=== PATIENT | male | born 1985 | race Hispanic/Latino ===

== ENCOUNTER 2016-10-29 12:18 | Emergency (ER) | payer OTHER ==
[2016-10-29 12:29] VITALS: BMI 25.0
[2016-10-29 12:30] VITALS: TEMP 98.4
--- NOTE | 2016-10-29 13:01 | C.PDOC ---
History Of Present Illness The patient is a 31 yr old male presents to the ER with complaints of sudden onset of left and right sided chest pain yesterday while cooking at home. He describes the CP as a tightness. Some SOB was associated w/ his symptoms. Patient states he went to [facility], had a normal EKG and was told by the physician at [facility] to come to the ED for evaluation. Currently patient denies any chest pain, fever, palpitations, nausea, vomiting, abdominal pain, headache , weakness or numbness. Also denies any trauma or injury. PMD: None Time Seen by Provider: 10/29/16 12:49 Chief Complaint (Nursing): Chest Pain History Per: Patient History/Exam Limitations: no limitations Onset/Duration Of Symptoms: Sudden Onset (1 day ) Current Symptoms Are (Timing): Gone Past Medical History Reviewed: Historical Data, Nursing Documentation, Vital Signs Vital Signs: Last Vital Signs Temp 98.4 F 10/29/16 12:29 Pulse 92 H 10/29/16 14:56 Resp 18 10/29/16 14:56 BP 117/75 10/29/16 14:56 Pulse Ox 100 10/29/16 14:56 - Medical History PMH: No Chronic Diseases Family History: States: Hypertension - Social History Hx Tobacco Use: No Hx Alcohol Use: Yes (social) Hx Substance Use: No - Immunization History Hx Tetanus Toxoid Vaccination: No Hx Influenza Vaccination: No Hx Pneumococcal Vaccination: No Review Of Systems Except As Marked, All Systems Reviewed And Found Negative. Constitutional: Negative for: Fever Cardiovascular: Positive for: Chest Pain (None at the momemt ). Negative for: Palpitations Respiratory: Negative for: Shortness of Breath Gastrointestinal: Negative for: Nausea, Vomiting, Abdominal Pain Musculoskeletal: Positive for: Other ((+) Tingling sensation) Neurological: Negative for: Weakness, Numbness, Headache Physical Exam - Physical Exam Appears: Well, Non-toxic, No Acute Distress Skin: Warm, Dry, No Rash Head: Atraumatic, Normacephalic Eye(s): bilateral: Normal Inspection, EOMI Ear(s): Bilateral: Normal Nose: Normal Oral Mucosa: Moist Tongue: Normal Appearing Lips: Normal Appearing Throat: Normal, No Erythema, No Exudate, No Drooling Neck: Normal, Normal ROM, Supple Chest: Symmetrical, No Tenderness Cardiovascular: Rhythm Regular, No Murmur Respiratory: Normal Breath Sounds, No Rales, No Rhonchi, No Stridor, No Wheezing Gastrointestinal/Abdominal: Normal Exam, Soft, No Tenderness, No Guarding, No Rebound Extremity: Normal ROM, No Swelling Extremity: Bilateral: Atraumatic, Normal ROM Pulses: Left Radial: Normal, Right Radial: Normal Neurological/Psych: Oriented x3, Normal Speech, Normal Motor ED Course And Treatment - Laboratory Results Result Diagrams: 10/29/16 13:29 10/29/16 13:29 O2 Sat by Pulse Oximetry: 98 - Other Rad CXR X-Ray: Viewed By Me, Read By Radiologist Interpretation: HISTORY: chest pain. COMPARISON: None available. TECHNIQUE: Chest PA and lateral. FINDINGS: LUNGS: No focal consolidation. Please note that chest x-ray has limited sensitivity for the detection of pulmonary masses. PLEURA: No significant pleural effusion identified. No definite pneumothorax . CARDIOVASCULAR: The cardiomediastinal silhouette appears within normal limits of size. OSSEOUS STRUCTURES: No acute osseous abnormality identified. VISUALIZED UPPER ABDOMEN: Unremarkable. OTHER FINDINGS: None. IMPRESSION: No focal consolidation, significant pleural effusion, or definite pneumothorax identified. Medical Decision Making Medical Decision Making: INITIAL IMPRESSION: Chest pain INITIAL PLAN: * CXR * EKG * D-Dimer * Troponin * CBC * Urinalysis * Aspirin PO * 2:31PM - Pt feels better. Labs and CXR and EKG OK. Will d/c home. Disposition Counseled Patient/Family Regarding: Studies Performed, Diagnosis, Need For Followup - Disposition Disposition: HOME/ ROUTINE Disposition Time: 14:32 Condition: STABLE Additional Instructions: Mr. Zhu, thank you for letting us take care of you today. Return to the ER if your symptoms worsen, or if any problems. Follow up with a local primary care physician in [place] next week for a re- evaluation. Instructions: Chest Pain (ED) Forms: General Discharge Instructions Print Language: SAO TOMEAN - POA Present On Arrival: None - Clinical Impression Clinical Impression: Chest pain - Scribe Statement The provider has reviewed the documentation as recorded by the Jennifer Gallo Provider Attestation: All medical record entries made by the Nathanibkelsey were at my direction and personally dictated by me. I have reviewed the chart and agree that the record accurately reflects my personal performance of the history, physical exam, medical decision making, and the department course for this patient. I have also personally directed, reviewed, and agree with the discharge instructions and disposition.
[2016-10-29 13:37] LABS: BASO % 0.7 % (0.0-2.0); EOS # 0.1 K/uL (0.0-0.7); EOS % 2.2 % (0.0-4.0); HEMATOCRIT 50.5 % (35.0-51.0); LYMPH # 1.6 K/uL (1.0-4.3); LYMPH % 28.9 % (20.0-40.0); MEAN CELL VOLUME 85.8 fL (80.0-94.0); MEAN CORPUSCULAR HEMOGLOBIN 29.2 pg (27.0-31.0); MEAN PLATELET VOLUME 7.6 fL (7.2-11.7); MONO # 0.4 K/uL (0.0-0.8); MONO % 7.3 % (0.0-10.0); NRBC % 0.1 % (0.0-2.0); RED CELL DISTRIBUTION WIDTH 12.9 % (11.5-14.5); WHITE BLOOD COUNT 5.6 K/uL (4.8-10.8)
[2016-10-29 13:44] LABS: CHLORIDE 101 mmol/L (98-107)
[2016-10-29 13:45] LABS: POTASSIUM 4.2 mmol/L (3.6-5.2); SODIUM 141 mmol/L (132-148)
[2016-10-29 13:47] LABS: ALKALINE PHOSPHATASE 70 U/L (38-126); AST/SGOT 31 U/L (17-59); BILIRUBIN,TOTAL 0.9 mg/dL (0.2-1.3); CARBON DIOXIDE 27 mmol/L (22-30); GFR AFRICAN-AMERICAN > 60; TOTAL PROTEIN 7.8 g/dL (6.3-8.3)
[2016-10-29 13:48] LABS: ALT/SGPT 56 U/L (21-72); BLOOD UREA NITROGEN 14 mg/dL (9-20); GLUCOSE,RANDOM 85 mg/dL (75-110)
--- NOTE | 2016-10-29 14:16 | RAD ---
HISTORY: chest pain COMPARISON: None available. TECHNIQUE: Chest PA and lateral FINDINGS: LUNGS: No focal consolidation. Please note that chest x-ray has limited sensitivity for the detection of pulmonary masses. PLEURA: No significant pleural effusion identified. No definite pneumothorax . CARDIOVASCULAR: The cardiomediastinal silhouette appears within normal limits of size. OSSEOUS STRUCTURES: No acute osseous abnormality identified. VISUALIZED UPPER ABDOMEN: Unremarkable. OTHER FINDINGS: None. IMPRESSION: No focal consolidation, significant pleural effusion, or definite pneumothorax identified.
[2016-10-29 14:57] VITALS: BP 117/75; PULSE 92; RESP 18
--- NOTE | 2016-11-02 12:30 | CARD ---
APPROVED REPORT EKG Measurement Heart [id number] <Conclusion> Normal sinus rhythm Normal ECG
[2016-11-04 17:29] VITALS: O2SAT 98
== END 2016-10-29 15:07 | disposition home or self-care (01) ==
LOC: C.ER 12:18
DX: R07.9 Chest pain, unspecified (principal)